=== PATIENT | male | born 1955 | race African-American/Black ===

== ENCOUNTER 2018-12-22 14:16 | Emergency (ER) | payer OTHER ==
[~2018-12-22] VITALS: Ht 182.9 cm; Wt 117.9 kg
--- NOTE | 2018-12-22 14:22 | NUR ---
ED Nurse Note: pt not in the waiting room at this time
[2018-12-22] MEDS ORDERED: NKM (14:41)
--- NOTE | 2018-12-22 14:54 | NUR ---
ED Nurse Note:pt. came with pain and injury to left knee, ambulatory, A/Ox4
[2018-12-22] MEDS ORDERED: Methocarbamol 500mg tab ORAL ONE (15:15)
[2018-12-22] MEDS ORDERED: HYDROcodone/Acetamin 5/325 tab PO ONE (15:15)
--- NOTE | 2018-12-22 15:19 | Emergency Room Report ---
History of Present Illness General Chief Complaint: Pain Source: Patient Present Illness HPI The patient was leaving [facility] and was knocked down by a heavy construction gate. It hit the cart and then his left knee and he fell. He has been able to ambulate but still has 8/10 pain in his knee. In addition is complaining about neck pain and lower back pain. He's had back surgery, bilateral knee surgery and shoulder surgery in the past. In addition to the back pain there is some numbness in his big toe and his right leg. There was no direct trauma to his back. The numbness started today. He was concerned about the neck pain. There is a bruise on the inner thigh where the gate hit him (or the cart). No fevers, blood thinners, oncologic problems. No incontinence or saddle numbness. No chest pain, abdominal pain, dysuria, rashes. Allergies: Coded Allergies: AMOXICILLIN (Verified Allergy, Unknown, 12/22/18) IBUPROFEN (Verified Allergy, Unknown, 12/22/18) NEOMYCIN (Verified Allergy, Unknown, 12/22/18) Patient History Past Medical History: see triage record Past Surgical History: other - Knee back shoulder Social History: Denies: smoking Social History Narrative - mckeon Reviewed Nursing Documentation: PMH: Agreed; PSxH: Agreed Nursing Documentation-PMH Past Medical History: No History, Except For Hx Cardiac Problems: Yes - BRADYCARDIA- WILL BE TAKING STRESS TEST ON 01/03/19; Review of Systems All Other Systems: negative except mentioned in HPI Physical Exam Vital Signs Date Time Temp Pulse Resp B/P (MAP) Pulse Ox O2 Delivery O2 Flow Rate FiO2 12/22/18 14:38 99.3 50 16 149/69 92 Room Air Sp02 EP Interpretation: reviewed, normal General Appearance: well appearing, no apparent distress, GCS 15 Head: normocephalic, atraumatic Eyes: bilateral eye normal inspection, bilateral eye PERRL, bilateral eye EOMI ENT: hearing grossly normal, normal voice Neck: full range of motion, supple, tender lateral - bilateral muscles with stiffness Respiratory: chest non-tender, lungs clear, normal breath sounds, no respiratory distress, speaking full sentences Cardiovascular #1: regular rate, rhythm Cardiovascular #2: 2+ radial (R) Gastrointestinal: normal inspection, normal bowel sounds, overweight Genitourinary: no CVA tenderness Musculoskeletal: no calf tenderness, other - lumbar tenderness, paraspinous, able to sit, stand and walk without increased pain Neurologic: alert, oriented x3, motor strength/tone normal, normal gait, sensory deficit - alleged R great toe/leg - subjective Psychiatric: mood/affect normal Skin: warm/dry, abrasions - left anterior tibia, hematoma - L medial thigh Medical Decision Making Diagnostic Impression: Primary Impression: Contusion of left knee Qualified Codes: S80.02XA - Contusion of left knee, initial encounter Additional Impressions: Back strain Qualified Codes: S39.012A - Strain of muscle, fascia and tendon of lower back , initial encounter Neck strain Qualified Codes: S16.1XXA - Strain of muscle, fascia and tendon at neck level , initial encounter Hematoma ER Course Patient presents today after an injury to his left knee and leg with neck and back pain. Differential includes knee contusion, fracture, exacerbation of osteoarthritis regarding the knee. Regarding the neck and back there are no red flag symptoms aside from the minimal numbness in his great toe on the right- hand side. This developed after pain increased in his back and neck suggesting secondary problem after initial trauma. He has evidence of significant muscle spasm. X-rays of the neck and back are not indicated at this time. X-rays of the knee are indicated. The patient is given [place] and Robaxin. X-ray of the knee with degenerative joint disease and narrowing of the medial joint space. No fractures. An [place] is applied. Tension is excellent with improvement in pain. Neurovascular is checked by me and normal. Patient is improved with treatment in the emergency department. Discussed treatment plan including local care and physical therapy. Patient stable for outpatient observation and treatment. Other X-Ray Diagnostic Results Other X-Ray Diagnostic Results : # of Views/Limited Vs Complete: 3 View Indication: Pain EP Interpretation: Yes Interpretation: no dislocation, no soft tissue swelling, no fractures, other - DJD Impression: Other Electronically Signed by: Electronically signed by Landen Rivera MD Last Vital Signs Date Time Temp Pulse Resp B/P (MAP) Pulse Ox O2 Delivery O2 Flow Rate FiO2 12/22/18 16:38 99.3 55 16 144/70 95 Room Air Status: improved Disposition: HOME, SELF-CARE Condition: Improved Scripts Methocarbamol* (ROBAXIN*) 500 Mg Tablet 500 MG PO TID, #10 TAB 0 Refills Prov: Landen Rivera MD 12/22/18 Hydrocodone Bit/Acetaminophen 5-325* (NORCO 5-325*) 1 Each Tablet 1 TAB ORAL Q6H PRN for For Pain, #10 TAB 0 Refills Prov: Landen Rivera MD 12/22/18 Landen Rivera MD Dec 22, 2018 15:19
[2018-12-22 15:26] VITALS: BP 149/69
--- NOTE | 2018-12-22 15:27 | NUR ---
ED Nurse Note:pain meds were given
--- NOTE | 2018-12-22 16:01 | Diagnostic Imaging Report ---
Indication: Pain status post injury Technique: XRAY Knee 3v LT Comparison: None Findings: Bone mineralization within normal limits. There is no evidence of acute fracture or dislocation. No suprapatellar joint effusion. There are degenerative changes with joint space narrowing most pronounced in the medial compartment. There are small osteophytes as well. No radio opaque foreign body identified. Impression: Degenerative change of the knee. No acute fracture or dislocation.
[2018-12-22] MEDS ORDERED: NORCO 5-325 TA1 EACH ORAL (16:34)
[2018-12-22] MEDS ORDERED: ROBAXIN500 MG PO (16:34)
[2018-12-22 16:38] VITALS: BP 144/70
--- NOTE | 2018-12-22 16:39 | NUR ---
ER DISCHARGE NOTE: Patient is cleared to be discharged per ERMD, pt is aox4, on room air, with stable vital signs. pt was given dc and prescription instructions, pt was able to verbalize understanding, pt is able to ambulate with cane and spouse. pt took all belongings.
== END 2018-12-22 16:38 | disposition home or self-care (01) ==
LOC: EMR 16:28
DX: S80.02XA Contusion of left knee, initial encounter (principal); S16.1XXA Strain of muscle, fascia and tendon at neck level, initial encounter; S39.012A Strain of muscle, fascia and tendon of lower back, initial encounter; S70.12XA Contusion of left thigh, initial encounter; W19.XXXA Unspecified fall, initial encounter; Y92.89 Other specified places as the place of occurrence of the external cause; Z88.0 Allergy status to penicillin; Z88.6 Allergy status to analgesic agent
CPT/HCPCS: 99283